=== PATIENT | female | born 1930 | race Caucasian/White ===

== ENCOUNTER 2018-05-17 00:52 | Inpatient (IN) | payer MEDICARE, OTHER ==
[~2018-05-17] VITALS: Ht 162.6 cm; Wt 62.0 kg
[2018-05-17] MEDS ORDERED: SODIUM CHLORIDE FLUSH 10ML SYR IVF ONE (01:00)
[2018-05-17] MEDS ORDERED: LORazepam 2 MG/ML, 1ML ONE (01:10)
[2018-05-17] MEDS ORDERED: ZIPRASIDONE 20 MG INJ IM ONE ×4 (01:27→11:00)
[2018-05-17] MEDS ORDERED: PLEASE ENTER ALLERGIES MC SCH (01:30)
[2018-05-17] MEDS ORDERED: LORazepam 2 MG/ML, 1ML IVPush ONE (01:30)
[2018-05-17] MEDS ORDERED: METO25TA35 PO (01:53)
[2018-05-17] MEDS ORDERED: FURO20TA3 PO (01:53)
[2018-05-17] MEDS ORDERED: ACET-1770 PO (01:53)
[2018-05-17] MEDS ORDERED: MELA1TAB15 PO (01:53)
[2018-05-17] MEDS ORDERED: ASPI-496 PO (01:53)
[2018-05-17] MEDS ORDERED: POTA8CAP PO (01:53)
[2018-05-17] MEDS ORDERED: PARO20TA4 PO (01:53)
[2018-05-17] MEDS ORDERED: ALPR-475 PO (01:53)
[2018-05-17] MEDS ORDERED: ACETAMINOPHEN 500 MG TABLET PO PRN (02:30)
[2018-05-17 02:36] LABS: INTERNATIONAL NORMALIZED RATIO 1.04 (0.93-1.1)
[2018-05-17 02:52] LABS: TROPONIN I < 0.015 ng/mL (0.000-0.045)
[2018-05-17] MEDS ORDERED: POLYETHYLENE GLYCOL 17 GM PACKET PO PRN (03:00)
[2018-05-17] MEDS ORDERED: ONDANSETRON ODT 4 MG PO PRN (03:00)
[2018-05-17] MEDS ORDERED: BISACODYL 10 MG SUPP PR PRN (03:00)
[2018-05-17] MEDS ORDERED: PROMETHAZINE 25 MG/ML, 1ML IM PRN (03:00)
[2018-05-17] MEDS ORDERED: hydrALAzine 20 MG/ML, 1ML IVPush PRN (03:00)
[2018-05-17] MEDS ORDERED: GABAPENTIN 300 MG CAPSULE PO PRN (03:00)
[2018-05-17] MEDS ORDERED: ONDANSETRON 2MG/ML, 2ML IVPush PRN (03:00)
[2018-05-17] MEDS ORDERED: DOCUSATE 100 MG CAPSULE PO PRN (03:00)
[2018-05-17 03:19] LABS: FREE T4 (FREE THYROXINE) 1.17 ng/dL (0.76-1.46); THYROID STIMULATING HORMONE 4.11 mIU/L (0.358-3.740)
[2018-05-17 03:24] LABS: HEMOGLOBIN A1C 6.8 % (4.2-6.3)
[2018-05-17] MEDS ORDERED: OMNIPAQUE 350 MG/ML, 100ML BOTTLE ONE (03:37)
[2018-05-17 03:53] VITALS: BP 111/62
[2018-05-17] MEDS: HEPARIN 5,000 UNITS/ML, 1ML SQ SCH ×3 (04:01→19:07)
[2018-05-17 04:14] VITALS: BP 111/62
[2018-05-17 06:30] VITALS: BP 129/80
[2018-05-17 07:33] LABS: BASOPHILS # (AUTO) 0.04 x10^3/uL (0-0.1); BASOPHILS % (AUTO) 1 % (0-1); EOSINOPHILS # (AUTO) 0.29 x10^3/uL (0-0.4); EOSINOPHILS % (AUTO) 3 % (1-7); LYMPHOCYTES % (AUTO) 17 % (22-44); MD NO; MEAN CORPUSCULAR HEMOGLOBIN 33.7 pg (27.0-34.8); MEAN CORPUSCULAR HGB CONC 33.6 g/dL (32.4-35.8); MEAN CORPUSCULAR VOLUME 100.3 fL (80-100); MEAN PLATELET VOLUME 9.3 fL (7.4-10.4); MONOCYTES # (AUTO) 0.48 x10^3/uL (0.2-0.8); MONOCYTES % (AUTO) 5 % (2-9); NEUTROPHILS # (AUTO) 6.94 x10^3/uL (1.8-6.8); NEUTROPHILS % (AUTO) 74 % (42-75); PLATELET COUNT 156 x10^3/uL (130-400); RED BLOOD COUNT 4.23 x10^6/uL (3.82-5.3); RED CELL DISTRIBUTION WIDTH 14.3 % (9.6-15.2)
[2018-05-17] MEDS ORDERED: ARIP5TAB13 PO (07:59)
[2018-05-17] MEDS ORDERED: HYDR-3240 PO (07:59)
[2018-05-17] MEDS ORDERED: NYST15CR33 TP (07:59)
[2018-05-17] MEDS ORDERED: CLOT15CR4 TP (07:59)
[2018-05-17] MEDS ORDERED: ACET325T14 PO (07:59)
[2018-05-17] MEDS ORDERED: [UNRECOGNIZED DRUG - CODE] PO (07:59)
[2018-05-17] MEDS: METOPROLOL SUCCINATE 25 MG TAB.ER.24H PO SCH (08:49)
[2018-05-17] MEDS: PAROXETINE 20 MG TABLET PO SCH (08:50)
[2018-05-17] MEDS: POTASSIUM CHLORIDE 8 MEQ TABLET.ER PO SCH ×2 (08:50→20:35)
[2018-05-17] MEDS: ASPIRIN 81 MG TABLET CHEW PO SCH (08:50)
[2018-05-17 13:40] VITALS: BP 123/73
[2018-05-17 19:46] VITALS: BP 105/61
[2018-05-17] MEDS: MELATONIN 5 MG TABLET PO SCH (20:35)
[2018-05-18 00:34] VITALS: BP 113/69
[2018-05-18] MEDS: HEPARIN 5,000 UNITS/ML, 1ML SQ SCH ×3 (03:00→20:22)
[2018-05-18] MEDS: METOPROLOL SUCCINATE 25 MG TAB.ER.24H PO SCH (05:28)
[2018-05-18 05:33] LABS: BASOPHILS # (AUTO) 0.01 x10^3/uL (0-0.1); BASOPHILS % (AUTO) 0 % (0-1); EOSINOPHILS # (AUTO) 0.21 x10^3/uL (0-0.4); EOSINOPHILS % (AUTO) 2 % (1-7); LYMPHOCYTES % (AUTO) 13 % (22-44); MD NO; MEAN CORPUSCULAR HEMOGLOBIN 33.5 pg (27.0-34.8); MEAN CORPUSCULAR HGB CONC 33.6 g/dL (32.4-35.8); MEAN CORPUSCULAR VOLUME 99.6 fL (80-100); MEAN PLATELET VOLUME 9.2 fL (7.4-10.4); MONOCYTES # (AUTO) 0.43 x10^3/uL (0.2-0.8); MONOCYTES % (AUTO) 4 % (2-9); NEUTROPHILS # (AUTO) 7.96 x10^3/uL (1.8-6.8); NEUTROPHILS % (AUTO) 80 % (42-75); PLATELET COUNT 176 x10^3/uL (130-400); RED CELL DISTRIBUTION WIDTH 14.3 % (9.6-15.2)
[2018-05-18 05:46] LABS: CHLORIDE 107 mmol/L (98-107)
[2018-05-18 05:55] LABS: ALANINE AMINOTRANSFERASE 23 U/L (12-78); ALBUMIN 3.8 g/dL (3.4-5.0); ALKALINE PHOSPHATASE 96 U/L (45-117); ANION GAP 9 mmol/L (5-15); BILIRUBIN,TOTAL 0.6 mg/dL (0.2-1.0); CALCIUM 8.7 mg/dL (8.5-10.1); CHOL/HDL RATIO 3.6; CHOLESTEROL, TOTAL 228 mg/dL (140-239); CREATININE 1.02 mg/dL (0.55-1.02); HDL CHOL % 28 % (28-40); HDL CHOLESTEROL (DIRECT) 63 mg/dL (40-60); LDL CHOLESTEROL,CALCULATED 144 mg/dL (54-169); LDL/HDL RATIO 2.3 (0.5-3.0); TOTAL PROTEIN 7.9 g/dL (6.4-8.2); TRIGLYCERIDES 103 mg/dL (50-200); VLDL CHOLESTEROL 21 mg/dL (0-25)
[2018-05-18 06:45] VITALS: BP 155/90
[2018-05-18] MEDS: POTASSIUM CHLORIDE 8 MEQ TABLET.ER PO SCH ×2 (09:35→20:22)
[2018-05-18] MEDS: PAROXETINE 20 MG TABLET PO SCH (09:35)
[2018-05-18] MEDS: ASPIRIN 81 MG TABLET CHEW PO SCH (09:35)
[2018-05-18] MEDS: QUETIAPINE 25MG TABLET PO SCH (11:57)
[2018-05-18 14:45] VITALS: BP 149/79
[2018-05-18 17:30] LABS: MICROSCOPIC AUTO
[2018-05-18 17:33] LABS: CULTURE INDICATED? YES
[2018-05-18] MEDS: MELATONIN 5 MG TABLET PO SCH (20:22)
[2018-05-18 22:12] VITALS: BP 134/74
[2018-05-19 01:41] VITALS: BP 159/78
[2018-05-19] MEDS: HEPARIN 5,000 UNITS/ML, 1ML SQ SCH ×3 (03:40→21:28)
[2018-05-19 07:38] VITALS: BP 154/68
[2018-05-19] MEDS: ASPIRIN 81 MG TABLET CHEW PO SCH (09:00)
[2018-05-19] MEDS: METOPROLOL SUCCINATE 25 MG TAB.ER.24H PO SCH (09:00)
[2018-05-19] MEDS: POTASSIUM CHLORIDE 8 MEQ TABLET.ER PO SCH (09:40)
[2018-05-19] MEDS: QUETIAPINE 25MG TABLET PO SCH (09:40)
[2018-05-19] MEDS: PAROXETINE 20 MG TABLET PO SCH (09:40)
[2018-05-19] MEDS: CEFTRIAXONE PMX 2GM/50ML 50 ML IV SCH (13:04)
[2018-05-19 18:43] VITALS: BP 122/66
[2018-05-19] MEDS ORDERED: POTASSIUM CHLORIDE 10% 20 MEQ/15 ML UDC PO SCH (21:18)
[2018-05-19] MEDS: MELATONIN 5 MG TABLET PO SCH (21:35)
[2018-05-19] MEDS: POTASSIUM CHLORIDE 10% ORAL 20 MEQ/15 ML ORAL.SOL PO SCH (21:45)
[2018-05-20] MEDS: ACETAMINOPHEN 325 MG TABLET PO PRN (01:10)
[2018-05-20 01:13] VITALS: BP 177/78
[2018-05-20] MEDS: HEPARIN 5,000 UNITS/ML, 1ML SQ SCH ×3 (05:05→20:59)
[2018-05-20 07:26] VITALS: BP 186/74
[2018-05-20] MEDS: ASPIRIN 81 MG TABLET CHEW PO SCH (08:22)
[2018-05-20] MEDS: PAROXETINE 20 MG TABLET PO SCH (08:22)
[2018-05-20] MEDS: QUETIAPINE 25MG TABLET PO SCH (08:22)
[2018-05-20] MEDS: METOPROLOL SUCCINATE 25 MG TAB.ER.24H PO SCH (08:22)
[2018-05-20] MEDS: POTASSIUM CHLORIDE 10% ORAL 20 MEQ/15 ML ORAL.SOL PO SCH ×2 (12:20→21:00)
[2018-05-20] MEDS: CEFTRIAXONE PMX 2GM/50ML 50 ML IV SCH (12:20)
[2018-05-20 14:13] VITALS: BP 148/75
[2018-05-20 15:24] VITALS: BP 126/62
[2018-05-20 18:36] VITALS: BP 170/78
[2018-05-20] MEDS: MELATONIN 5 MG TABLET PO SCH (20:58)
[2018-05-20] MEDS: ARIPIPRAZOLE 5 MG TABLET PO SCH (20:59)
[2018-05-21 01:26] VITALS: BP 147/74
[2018-05-21] MEDS: HEPARIN 5,000 UNITS/ML, 1ML SQ SCH ×4 (05:33→20:07)
[2018-05-21] MEDS: METOPROLOL SUCCINATE 25 MG TAB.ER.24H PO SCH ×2 (05:36→07:55)
[2018-05-21 06:38] VITALS: BP 106/53
[2018-05-21] MEDS: ASPIRIN 81 MG TABLET CHEW PO SCH (07:53)
[2018-05-21] MEDS: QUETIAPINE 25MG TABLET PO SCH (07:53)
[2018-05-21] MEDS: PAROXETINE 20 MG TABLET PO SCH (07:53)
[2018-05-21] MEDS: POTASSIUM CHLORIDE 10% ORAL 20 MEQ/15 ML ORAL.SOL PO SCH ×2 (07:55→20:07)
[2018-05-21] MEDS ORDERED: CEFD300C37 PO (11:26)
[2018-05-21] MEDS ORDERED: METO25TA91 PO (11:26)
[2018-05-21] MEDS ORDERED: FURO-93 PO (11:26)
[2018-05-21] MEDS ORDERED: POLY17PO5 PO (11:26)
[2018-05-21] MEDS: FUROSEMIDE 20 MG TABLET PO SCH (11:30)
[2018-05-21] MEDS: CEFTRIAXONE PMX 2GM/50ML 50 ML IV SCH (12:00)
[2018-05-21 13:52] VITALS: BP 112/54
[2018-05-21 18:56] VITALS: BP 148/64
[2018-05-21] MEDS ORDERED: ZIPRASIDONE 20 MG INJ IM ONE ×2 (19:58→20:00)
[2018-05-21] MEDS: ARIPIPRAZOLE 5 MG TABLET PO SCH (20:07)
[2018-05-21] MEDS: MELATONIN 5 MG TABLET PO SCH (20:07)
[2018-05-22 01:50] VITALS: BP 129/74
[2018-05-22] MEDS: METOPROLOL SUCCINATE 25 MG TAB.ER.24H PO SCH (05:46)
[2018-05-22] MEDS: HEPARIN 5,000 UNITS/ML, 1ML SQ SCH ×3 (05:46→20:00)
[2018-05-22 06:58] VITALS: BP 117/66
[2018-05-22] MEDS: ASPIRIN 81 MG TABLET CHEW PO SCH (09:46)
[2018-05-22] MEDS: PAROXETINE 20 MG TABLET PO SCH (09:46)
[2018-05-22] MEDS: FUROSEMIDE 20 MG TABLET PO SCH (09:47)
[2018-05-22] MEDS: POTASSIUM CHLORIDE 10% ORAL 20 MEQ/15 ML ORAL.SOL PO SCH ×2 (09:47→20:00)
[2018-05-22 12:02] VITALS: BP 128/52
[2018-05-22] MEDS: CEFTRIAXONE PMX 2GM/50ML 50 ML IV SCH (12:03)
[2018-05-22 19:16] VITALS: BP 139/65
[2018-05-22] MEDS: MELATONIN 5 MG TABLET PO SCH (20:00)
[2018-05-22] MEDS: ARIPIPRAZOLE 5 MG TABLET PO SCH (20:00)
[2018-05-23 01:28] VITALS: BP 156/78
[2018-05-23] MEDS ORDERED: ZIPRASIDONE 20 MG INJ IM ONE (04:50)
[2018-05-23] MEDS: HEPARIN 5,000 UNITS/ML, 1ML SQ SCH ×3 (05:10→21:19)
[2018-05-23] MEDS: METOPROLOL SUCCINATE 25 MG TAB.ER.24H PO SCH (05:10)
[2018-05-23 08:04] VITALS: BP 121/51
[2018-05-23] MEDS ORDERED: QUET25TA PO (10:40)
[2018-05-23 11:00] LABS: ANION GAP 6 mmol/L (5-15); CALCIUM 8.7 mg/dL (8.5-10.1); CHLORIDE 110 mmol/L (98-107); CREATININE 1.07 mg/dL (0.55-1.02)
[2018-05-23] MEDS ORDERED: CEFTRIAXONE PMX 2GM/50ML 50 ML IV ONE (11:00)
[2018-05-23] MEDS: FUROSEMIDE 20 MG TABLET PO SCH (11:20)
[2018-05-23] MEDS: ASPIRIN 81 MG TABLET CHEW PO SCH (11:20)
[2018-05-23] MEDS: PAROXETINE 20 MG TABLET PO SCH (11:20)
[2018-05-23 12:12] VITALS: BP 135/61
[2018-05-23 19:47] VITALS: BP 136/51
[2018-05-23] MEDS: ARIPIPRAZOLE 5 MG TABLET PO SCH (21:20)
[2018-05-23] MEDS: MELATONIN 5 MG TABLET PO SCH (21:20)
[2018-05-23] MEDS: ACETAMINOPHEN 325 MG TABLET PO PRN (22:17)
[2018-05-23] MEDS: QUETIAPINE 25MG TABLET PO PRN (22:18)
[2018-05-24 01:31] VITALS: BP 127/80
[2018-05-24] MEDS: HEPARIN 5,000 UNITS/ML, 1ML SQ SCH ×3 (05:53→23:29)
[2018-05-24] MEDS: METOPROLOL SUCCINATE 25 MG TAB.ER.24H PO SCH ×2 (05:54→05:58)
[2018-05-24 07:15] VITALS: BP 148/71
[2018-05-24] MEDS ORDERED: ATOR20TA PO (10:50)
[2018-05-24] MEDS: PAROXETINE 20 MG TABLET PO SCH (10:52)
[2018-05-24] MEDS: ASPIRIN 81 MG TABLET CHEW PO SCH (10:52)
[2018-05-24] MEDS: FUROSEMIDE 20 MG TABLET PO SCH (10:52)
[2018-05-24 13:55] VITALS: BP 157/71
[2018-05-24 18:49] VITALS: BP 121/76
[2018-05-24] MEDS: ARIPIPRAZOLE 5 MG TABLET PO SCH (19:45)
[2018-05-24] MEDS: MELATONIN 5 MG TABLET PO SCH (19:45)
[2018-05-25 00:21] VITALS: BP 146/66
[2018-05-25] MEDS: QUETIAPINE 25MG TABLET PO PRN ×2 (01:33→10:46)
[2018-05-25] MEDS: METOPROLOL SUCCINATE 25 MG TAB.ER.24H PO SCH (06:37)
[2018-05-25] MEDS: HEPARIN 5,000 UNITS/ML, 1ML SQ SCH (06:37)
[2018-05-25 07:46] VITALS: BP 107/71
[2018-05-25] MEDS: PAROXETINE 20 MG TABLET PO SCH (08:08)
[2018-05-25] MEDS: ASPIRIN 81 MG TABLET CHEW PO SCH (08:08)
[2018-05-25] MEDS: FUROSEMIDE 20 MG TABLET PO SCH (08:08)
== END 2018-05-25 11:01 | disposition home or self-care (01) | DRG 189 ==
LOC: ED 01:04 → EDIP 02:38 → 5SO 03:52 → 3NE 05-20 15:16
PROVIDERS: ADMIT Internal Medicine; ATTEND Internal Medicine
PROC: 0T9B70Z Drainage of Bladder with Drainage Device, Via Natural or Artificial Opening (ICD-10-PCS; principal; 2018-05-18)
DX: J96.01 Acute respiratory failure with hypoxia (principal); E43 Unspecified severe protein-calorie malnutrition; G93.40 Encephalopathy, unspecified; D68.69 Other thrombophilia; N13.6 Pyonephrosis; I48.91 Unspecified atrial fibrillation; F32.9 Major depressive disorder, single episode, unspecified; F02.80 Dementia in other diseases classified elsewhere, unspecified severity, without behavioral disturbance, psychotic disturbance, mood disturbance, and anxiety; F41.9 Anxiety disorder, unspecified; I10 Essential (primary) hypertension; E78.5 Hyperlipidemia, unspecified; G30.9 Alzheimer's disease, unspecified; I35.1 Nonrheumatic aortic (valve) insufficiency; W18.30XA Fall on same level, unspecified, initial encounter; Z79.82 Long term (current) use of aspirin; Z79.899 Other long term (current) drug therapy; Z91.81 History of falling; Z68.23 Body mass index [BMI] 23.0-23.9, adult; Y92.89 Other specified places as the place of occurrence of the external cause
CPT/HCPCS: 36415; 71045; 71275; 76770; 80048; 80053; 80061; 81001; 83036; 83735; 83880; 84100; 84439; 84443; 84484; 85025; 85379; 85610; 85730; 87086; 93005; 93306; 96372; 96374; 99285; G0378; J0696; J1644; J3486; Q9967; J2060